=== PATIENT | female | born 2005 | race Caucasian/White ===

== ENCOUNTER 2024-05-27 21:41 | Emergency (ER) | payer OTHER ==
[2024-05-27 22:02] VITALS: BP 144/100; PULSE 82; RESP 14; TEMP 98.6; BMI 56.7
[2024-05-27 23:43] LABS: HEMATOCRIT 39.6 % (32.4-45.2); HEMOGLOBIN 13.2 GM/dL (10.7-15.3); MCH 30.1 pg (25.7-33.7); MCHC 33.3 g/dl (32.0-36.0); MEAN CELL VOLUME 90.5 fl (80-96); MEAN PLT VOLUME 7.5 fl (7.5-11.1); PLATELET COUNT 442 10^3/uL (134-434); RBC 4.37 M/mm3 (3.60-5.2); RDW 13.8 % (11.6-15.6); WHITE BLOOD COUNT 12.2 K/mm3 (4.0-10.0)
[2024-05-28 01:06] LABS: ALBUMIN 3.6 g/dl (3.4-5.0); BILIRUBIN,TOTAL 0.6 mg/dL (0.2-1); BLOOD UREA NITROGEN 14.9 mg/dL (7-18); CALCIUM 9.3 mg/dL (8.5-10.1); CREATININE 0.7 mg/dL (0.55-1.3); TOT PROT 7.1 g/dl (6.4-8.2)
== END 2024-05-28 01:30 | disposition home or self-care (01) ==
LOC: FER 21:41
DX: R10.2 Pelvic and perineal pain (principal); N89.8 Other specified noninflammatory disorders of vagina
CPT/HCPCS: 36415; 74176-TC; 80053; 81025; 85027; 99284-25

== ENCOUNTER 2024-07-14 09:36 | Day surgery (SDC) | payer OTHER ==
[2024-07-10 12:54] VITALS: BMI 58.5
[2024-07-14 11:45] VITALS: RESP 19; TEMP 98
[2024-07-14 11:47] VITALS: BP 99/72; PULSE 93
== END 2024-07-14 11:40 | disposition home or self-care (01) ==
LOC: FASU-ENDO 09:36
PROVIDERS: ATTEND Internal Medicine Gastroenterology
PROC: 0DB68ZX Excision of Stomach, Via Natural or Artificial Opening Endoscopic, Diagnostic (ICD-10-PCS; 2024-07-14)
PROC: 0DB98ZX Excision of Duodenum, Via Natural or Artificial Opening Endoscopic, Diagnostic (ICD-10-PCS; principal; 2024-07-14 10:51)
DX: K29.50 Unspecified chronic gastritis without bleeding (principal)
CPT/HCPCS: 81025; 88305-TC; 88342-TC